=== PATIENT | female | born 1950 | race Caucasian/White ===

== ENCOUNTER 2019-02-23 07:55 | Day surgery (SDC) | payer OTHER, BC ==
[2019-02-20 11:50] VITALS: BMI 20.9
[2019-02-23] MEDS ORDERED: PROPOFOL 20 ML ONE ×4 (08:09→08:54)
[2019-02-23 10:06] VITALS: BP 110/54; PULSE 51; TEMP 98
== END 2019-02-23 10:07 | disposition home or self-care (01) ==
LOC: FASU 07:55
PROVIDERS: ATTEND Internal Medicine Gastroenterology
PROC: 0DJD8ZZ Inspection of Lower Intestinal Tract, Via Natural or Artificial Opening Endoscopic (ICD-10-PCS; principal; 2019-02-23 08:57)
DX: Z12.11 Encounter for screening for malignant neoplasm of colon (principal); K57.30 Diverticulosis of large intestine without perforation or abscess without bleeding

== ENCOUNTER 2022-03-28 15:18 | Emergency (ER) | payer OTHER, BC ==
[2022-03-28 15:44] VITALS: BMI 20.7
[2022-03-28] MEDS ORDERED: SODIUM CHLORIDE 0.9% 500 ML INFUS.BAG IV ONE ×2 (16:10→17:55)
[2022-03-28] MEDS ORDERED: ACETAMINOPHEN 1000 MG/100 ML BAG IVPB ONE (16:13)
[2022-03-28] MEDS ORDERED: ACETAMINOPHEN INJECTION 100 ML IVPB ONE (16:31)
[2022-03-28 17:02] LABS: HEMATOCRIT 34.3 % (32.4-45.2); HEMOGLOBIN 11.7 G/dL (10.7-15.3); MCH 32.9 pg (25.7-33.7); MCHC 34.2 g/dl (32.0-36.0); MEAN CELL VOLUME 96.1 fl (80-96); MEAN PLT VOLUME 8.3 fl (7.5-11.1); PLATELET COUNT 455.8 10^3/uL (134-434); RBC 3.57 10^6/uL (3.60-5.2); RDW 15.1 % (11.6-15.6); WHITE BLOOD COUNT 20.6 10^3/uL (4.0-10.8)
[2022-03-28 17:15] LABS: ALBUMIN 2.8 g/dl (3.4-5.0); BILIRUBIN,TOTAL 0.8 mg/dl (0.2-1); CALCIUM 8.8 mg/dl (8.5-10); CREATININE 0.7 mg/dl (0.55-1.3); TOT PROT 5.3 g/dl (6.4-8.2)
[2022-03-28 18:02] LABS: PLATELET ESTIMATE SLT INCREASE
[2022-03-28 19:14] VITALS: BP 126/66; PULSE 66; RESP 18; TEMP 99.8
== END 2022-03-28 19:33 | disposition home or self-care (01) ==
LOC: FER 15:18
PROC: 3E033GC Introduction of Other Therapeutic Substance into Peripheral Vein, Percutaneous Approach (ICD-10-PCS; principal; 2022-03-28)
DX: K59.00 Constipation, unspecified (principal)
CPT/HCPCS: 36415; 74177-TC; 80053; 85027; 99285-25; Q9967

== ENCOUNTER 2022-03-30 11:14 | Inpatient (IN) | payer OTHER, BC ==
[2022-03-30] MEDS ORDERED: ACETAMINOPHEN 1000 MG/100 ML BAG IVPB ONE (12:14)
[2022-03-30] MEDS ORDERED: ACETAMINOPHEN INJECTION 100 ML IVPB ONE (13:12)
[2022-03-30 13:55] LABS: ALBUMIN 2.7 g/dl (3.4-5.0); BILIRUBIN,TOTAL 0.8 mg/dl (0.2-1); CALCIUM 8.5 mg/dl (8.5-10); CREATININE 0.6 mg/dl (0.55-1.3); TOT PROT 5.4 g/dl (6.4-8.2)
[2022-03-30 13:57] LABS: HEMATOCRIT 33.6 % (32.4-45.2); HEMOGLOBIN 11.6 G/dL (10.7-15.3); MCH 33.5 pg (25.7-33.7); MCHC 34.4 g/dl (32.0-36.0); MEAN CELL VOLUME 97.4 fl (80-96); MEAN PLT VOLUME 8.4 fl (7.5-11.1); RBC 3.45 10^6/uL (3.60-5.2); RDW 13.9 % (11.6-15.6); WHITE BLOOD COUNT 31.5 10^3/uL (4.0-10.8)
[2022-03-30 14:40] LABS: PLATELET ESTIMATE SLT INCREASE
[2022-03-30] MEDS ORDERED: PIPERACILLIN/TAZOB 4.5 GM 4.5 GM in DEXTROSE 5%-WATER 100 ML IVPB ONE (15:27)
[2022-03-30] MEDS ORDERED: PIPERACILLIN/TAZOBACTAM 4.5 GM VIAL IVPB ONE (15:34)
[2022-03-30] MEDS ORDERED: LACTATED RINGERS SOLUTION 1000 ML INFUS.BAG IV ONE (16:57)
[2022-03-30] MEDS ORDERED: KETOROLAC TROMETHAMINE 15 MG/ML VIAL IVPUSH ONE (16:57)
[2022-03-30] MEDS ORDERED: KETOROLAC TROMETHAMINE 15 MG/ML VIAL ONE (16:58)
[2022-03-30 19:17] VITALS: BMI 22.8
[2022-03-30] MEDS ORDERED: ACETAMINOPHEN 1000 MG/100 ML BAG IVPB PRN (22:48)
[2022-03-30] MEDS: DEXTROSE 5%-0.45% SALINE 1,000 ML IV SCH (23:51)
[2022-03-31] MEDS ORDERED: SODIUM CHLORIDE 250 ML IV STA (00:03)
[2022-03-31] MEDS: LEVOTHYROXINE NA 75 MCG TABLET (FP) PO SCH (06:46)
[2022-03-31 06:48] VITALS: RESP 18
[2022-03-31] MEDS ORDERED: MINERAL OIL ENEMA 133 ML ENEMA RC ONE (07:23)
[2022-03-31 08:22] LABS: CALCIUM 8.1 mg/dl (8.5-10); CREATININE 0.6 mg/dl (0.55-1.3)
[2022-03-31] MEDS: ACETAMINOPHEN 1000 MG/100 ML BAG IVPB SCH ×3 (09:15→21:44)
[2022-03-31 11:00] LABS: HEMATOCRIT 26.8 % (32.4-45.2); HEMOGLOBIN 9.3 GM/dL (10.7-15.3); MCHC 34.8 g/dl (32.0-36.0); MEAN CELL VOLUME 94.8 fl (80-96); MEAN PLT VOLUME 8.8 fl (7.5-11.1); PLATELET COUNT 415 10^3/uL (134-434); RBC 2.83 M/mm3 (3.60-5.2); RDW 13.1 % (11.6-15.6); WHITE BLOOD COUNT 24.1 K/mm3 (4.0-10.0)
[2022-03-31 11:52] LABS: ANISOCYTOSIS 1+; MACROCYTOSIS 0; OVALOCYTE 1+
[2022-03-31] MEDS: AMPICILLIN NA/SULBACTAM NA 3 GM in SODIUM CHLORIDE 100 ML IVPB SCH ×2 (15:19→23:32)
[2022-03-31] MEDS: SIMETHICONE 40 MG/0.6 ML BOTTLE PO SCH (18:16)
[2022-03-31] MEDS ORDERED: DOCUSATE NA 100 MG/10 ML UNIT-DOSE CUPS PO SCH (22:00)
[2022-03-31] MEDS: DEXTROSE 5%-0.45% SALINE 1,000 ML IV SCH (23:30)
[2022-03-31] MEDS: SIMETHICONE 80 MG TAB.CHEW (FP) PO PRN (23:33)
[2022-04-01] MEDS: AMPICILLIN NA/SULBACTAM NA 3 GM in SODIUM CHLORIDE 100 ML IVPB SCH ×2 (02:50→10:39)
[2022-04-01] MEDS: LEVOTHYROXINE NA 75 MCG TABLET (FP) PO SCH (06:17)
[2022-04-01 09:25] LABS: BILIRUBIN,TOTAL 0.7 mg/dl (0.2-1); CREATININE 0.5 mg/dl (0.55-1.3); MAGNESIUM 1.8 mg/dL (1.8-2.4); TOT PROT 4.2 g/dl (6.4-8.2)
[2022-04-01] MEDS ORDERED: ACETAMINOPHEN 500 MG TABLET (FP) PO PRN (09:41)
[2022-04-01] MEDS ORDERED: ENOXAPARIN NA (PORCINE) 40 MG/0.4 ML DISP.SYRIN SQ SCH (10:00)
[2022-04-01] MEDS ORDERED: DOCUSATE SODIUM 100 MG CAPSULE (FP) PO SCH (10:00)
[2022-04-01 10:12] LABS: CALCIUM 8.1 mg/dl (8.5-10)
[2022-04-01 10:17] LABS: HEMOGLOBIN 9.9 GM/dL (10.7-15.3); MCH 32.2 pg (25.7-33.7); MEAN CELL VOLUME 94.3 fl (80-96); RBC 3.07 M/mm3 (3.60-5.2); WHITE BLOOD COUNT 15.7 K/mm3 (4.0-10.0)
[2022-04-01 10:18] LABS: BASO % 0.3 % (0-2.0); EOS % 0.2 % (0-4.5); LYMPH % 7.8 % (8-40); MCHC 34.2 g/dl (32.0-36.0); MEAN PLT VOLUME 8.8 fl (7.5-11.1); MONO % 6.5 % (3.8-10.2); NEUT % 85.2 % (42.8-82.8); PLATELET COUNT 493 10^3/uL (134-434); RDW 13.4 % (11.6-15.6)
[2022-04-01] MEDS: SIMETHICONE 80 MG TAB.CHEW (FP) PO PRN (10:40)
[2022-04-01 14:14] VITALS: BP 112/55; PULSE 85; TEMP 97.9
== END 2022-04-01 15:03 | disposition home or self-care (01) | DRG 392 ==
LOC: FER 11:14 → FM/S 16:57
PROVIDERS: ADMIT Internal Medicine; ATTEND Internal Medicine
DX: K52.89 Other specified noninfective gastroenteritis and colitis (principal); K56.7 Ileus, unspecified; E03.9 Hypothyroidism, unspecified; D64.9 Anemia, unspecified; K76.9 Liver disease, unspecified; D72.829 Elevated white blood cell count, unspecified; K80.20 Calculus of gallbladder without cholecystitis without obstruction
CPT/HCPCS: 36415; 74176-TC; 74177-TC; 80048; 80053; 83605; 83735; 84100; 85025; 85027; 87045; 87046; 87186; 87209; 99285-25; C9803-CS; Q9967; U0003; U0005

== ENCOUNTER 2023-10-05 14:39 | Emergency (ER) | payer OTHER, BC ==
[2023-10-05] MEDS ORDERED: DIPHTH,PERTUSS(ACELL),TET 0.5 ML DISP.SYRIN IM ONE (14:54)
[2023-10-05 14:55] VITALS: BP 125/86; PULSE 68; RESP 18; TEMP 98.2
[2023-10-05] MEDS: DIPHTH,PERTUSS(ACELL),TET 0.5 ML DISP.SYRIN IM ONE (15:00)
== END 2023-10-05 15:36 | disposition home or self-care (01) ==
LOC: FER 14:39
PROC: 0HQFXZZ Repair Right Hand Skin, External Approach (ICD-10-PCS; principal; 2023-10-05)
PROC: 3E0234Z Introduction of Serum, Toxoid and Vaccine into Muscle, Percutaneous Approach (ICD-10-PCS; 2023-10-05)
DX: S51.811A Laceration without foreign body of right forearm, initial encounter (principal); W27.2XXA Contact with scissors, initial encounter; Z23 Encounter for immunization
CPT/HCPCS: 12001-25; 90471; 90715; 99284-25

== ENCOUNTER 2023-10-18 12:21 | Emergency (ER) | payer OTHER, BC ==
[2023-10-18 12:28] VITALS: BP 124/70; PULSE 63; RESP 18; TEMP 98.2
== END 2023-10-18 12:39 | disposition home or self-care (01) ==
LOC: FER 12:21
DX: Z48.02 Encounter for removal of sutures (principal)
CPT/HCPCS: 99281-25